=== PATIENT | female | born 1995 | race Caucasian/White ===

== ENCOUNTER 2020-04-12 14:12 | Emergency (ER) | payer OTHER ==
[2020-04-12 14:18] VITALS: BP 113/62; PULSE 106; TEMP 99; BMI 34.3
[2020-04-12] MEDS ORDERED: KETOROLAC TROMETHAMINE 30 MG/1 ML VIAL IM ONE (14:32)
--- NOTE | 2020-04-12 14:32 | PDOC ---
Rapid Medical Evaluation Chief Complaint: Cold Symptoms Time Seen by Provider: 04/12/20 14:29 Medical Evaluation: Allergies Allergy/AdvReac Type Severity Reaction Status Date / Time No Known Allergies Allergy Verified 04/12/20 14:15 Vital Signs Temp Pulse Resp BP Pulse Ox 99.0 F 106 H 20 113/62 100 04/12/20 14:15 04/12/20 14:15 04/12/20 14:15 04/12/20 14:15 04/12/20 14:15 04/12/20 14:31 I have performed a brief in-person evaluation of this patient. CC: acute on chronic back pain. Worse today after steroid injection 04/11. Denies saddle anesthesia, incontinence or urinary retention. PE: No CVAT. Orders: toradol Patient to proceed to ED for further evaluation. Discharge Disposition - Diagnosis Back pain - Referrals Referrals: Isaias Chadwick [Primary Care Provider] - - Patient Instructions - Post Discharge Activity
[2020-04-12] MEDS ORDERED: KETOROLAC TROMETHAMINE 30 MG/1 ML VIAL ONE (14:59)
--- NOTE | 2020-04-12 15:41 | PDOC ---
History of Present Illness - General Chief Complaint: Cold Symptoms Stated Complaint: SICK Time Seen by Provider: 04/12/20 14:29 - History of Present Illness Initial Comments: 04/12/20 15:35 24-year-old female without comorbidities past medical history of COVID about a month ago complains of symptoms of dry cough fever last night chills night sweats and back pain Past History - Medical History Allergies/Adverse Reactions: Allergies Allergy/AdvReac Type Severity Reaction Status Date / Time No Known Allergies Allergy Verified 04/12/20 14:15 Home Medications: Ambulatory Orders Ibuprofen 800 mg PO Q6H PRN #12 tablet 04/23/16 Asthma: Yes COPD: No - Reproductive History Is Patient Now?: No - Immunization History Immunization Up to Date: Yes - Psycho-Social/Smoking History Smoking History: Never smoked - Substance Abuse Hx (Audit-C & DAST Scrn) How often the patient has a drink containing alcohol: Never Score: In Men: 4 or > Positive; In Women: 3 or > Positive: 0 Screen Result (Pos requires Nsg. Audit-10AR): Negative In the last yr the pt used illegal drug/Rx for NonMed reason: No Score: Yes response is considered Positive: 0 Screen Result (Positive result requires Nsg. DAST-10): Negative Review of Systems - Review of Systems Constitutional: Yes: Chills, Fever, Malaise, Night Sweats Respiratory: Yes: Cough. No: Shortness of Breath : No: Burning, Dysuria, Discharge, Flank Pain Musculoskeletal: Yes: Back Pain *Physical Exam - Vital Signs Last Vital Signs Temp Pulse Resp BP Pulse Ox 99.0 F 106 H 20 113/62 100 04/12/20 14:15 04/12/20 14:15 04/12/20 14:15 04/12/20 14:15 04/12/20 14:15 - Physical Exam General Appearance: Yes: Nourished, Appropriately Dressed. No: Apparent Distress HEENT: positive: Symmetrical Neck: positive: Supple Respiratory/Chest: positive: Normal Breath Sounds. negative: Respiratory Distre ss Musculoskeletal: positive: Normal Inspection. 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 NML intact, Fully Oriented, Alert, Normal Mood/Affect ED Treatment Course - RADIOLOGY Radiology Studies Ordered: Category Date Time Status CHEST PA & LAT [RAD] Stat Radiology 04/12/20 14:55 Completed - Medications Given in the ED: ED Medications Discontinued Medications Generic Name Dose Route Start Last Admin Trade Name Brianne PRN Reason Stop Dose Admin Ketorolac Tromethamine 30 mg 04/12/20 14:32 04/12/20 14:59 Toradol Injection - IM 04/12/20 14:33 30 mg ONCE ONE Administration Medical Decision Making - Medical Decision Making 04/12/20 15:40 Most likely viral upper or lower respiratory infection supportive care for now COVID test antibodies and swab were done chest x-ray clear I have reviewed the pathophysiology with the patient. They are in agreement with the treatment plan all questions were answered to their satisfaction. Understanding for follow-up without fail was also conveyed to the patient. Again they are in agreement. Discharge - Discharge Information Problems reviewed: Yes Clinical Impression/Diagnosis: Back pain, Viral syndrome Condition: Stable Disposition: HOME - Admission No - Follow up/Referral Referrals: Isaias Chadwick [Primary Care Provider] - - Patient Discharge Instructions Additional Instructions: Supportive care with Tylenol and Motrin as directed. Return to the emergency room for worsening symptoms and without fail follow-up with your primary care physician in 1 to 2 days for further evaluation and treatment options. Continue social distancing and contact precautions until results have been obtained. - Post Discharge Activity
== END 2020-04-12 15:50 | disposition home or self-care (01) ==
LOC: JERFT 14:12
PROC: 3E0233Z Introduction of Anti-inflammatory into Muscle, Percutaneous Approach (ICD-10-PCS; principal; 2020-04-12)
DX: M54.5 Low back pain (principal); B34.9 Viral infection, unspecified
CPT/HCPCS: 36415; 71046-TC-FY; 86769; 99284-25; U0003